=== PATIENT | male | born 1990 | race American Indian/Alaskan Native ===

== ENCOUNTER 2022-07-06 21:43 | Emergency (ER) | payer OTHER, SELFPAY ==
--- NOTE | ~2022-07-06 | CT_ITS ---
EXAMINATION: CT abdomen pelvis w con DATE: 07/07/2022 00:34 INDICATION: Right-sided abdominal pain. TECHNIQUE: Computed tomography (CT) of the abdomen and pelvis was performed with 100 mL Omnipaque 350 intravenous contrast. Automated exposure control and iterative reconstruction technique were employe d. The dose-length product was 752.74 mGy-cm. COMPARISON: None. FINDINGS: The visualized portions of the lung bases are clear without pneumonia or pleural effusion. The heart size is normal. No pericardial effusion. The liver, gallbladder, spleen, pancreas, adrenal glands, and kidneys are normal. There are no dilated loops of bowel. The appendix is normal. There ar e no pathologically enlarged lymph nodes. There is no free intraperitoneal fluid. The bladder is dist ended. There is prominent fat in the left inguinal canal that may be a hernia. There is mild lumbar s pondylosis. There is mild osteoarthritis of the hips. IMPRESSION: 1. No specific etiology for the patient's symptoms. Reviewed, dictated and finalized at location A.
--- NOTE | ~2022-07-06 | XR_ITS ---
EXAM: XR hip RT min 2V DATE: 07/06/2022 22:33 HISTORY: Pain with Movement, NKI, PAIN OCCURED TODAY . COMPARISON: None available. FINDINGS: Normal mineralization. No fracture or dislocation. No lytic or blastic lesion. Mild osteop hytosis and subchondral sclerosis of the hip joint. No erosion or periosteal change. Soft tissues wit hin normal limits. IMPRESSION: No acute osseous finding in the right hip. Mild right hip osteoarthritis. Reviewed, dictated and finalized at location K. IMPRESSION: No acute osseous finding in the right hip. Mild right hip osteoarth ritis.
[2022-07-06 21:50] VITALS: BP 132/74; PULSE 61; RESP 16; TEMP 36.9; O2SAT 99
[2022-07-06 22:59] VITALS: BP 137/84; PULSE 70; RESP 22; O2SAT 99
--- NOTE | 2022-07-06 23:11 | ED.EXTPRO ---
HPI - Extremity Problem General Chief complaint: Extremity Problem,Nontraumatic Stated complaint: right hip pain Time Seen by Provider: 07/06/22 22:34 Source: patient Mode of arrival: EMS Limitations: no limitations History of Present Illness HPI Narrative: This is a 32 year old male that presents to the ER for right lower back pain. Reports he was walking when he felt sudden onset right lower back pain/hip pain. The pain is sharp in nature. Worse with movement. He has not taken anything for pain. Reports some associated right sided abdominal pain. Denies vomiting, dysuria, hematuria, decreased ROM or numbness. Related Data Allergies Allergy/AdvReac Type Severity Reaction Status Date / Time No Known Allergies Allergy Verified 07/06/22 22:24 Review of Systems Review of Systems: CONSTITUTIONAL: Denies fever GASTROINTESTINAL: Reports abdominal pain. Denies nausea, vomiting GENITOURINARY: Denies dysuria or hematuria. SKIN: Denies rash MUSCULOSKELETAL: Reports back pain, joint pain, and myalgia. NEUROLOGIC: Denies numbness, or weakness. All systems reviewed & are unremarkable except as noted in HPI and below PMFSH Past Medical History Medical History (Updated 07/07/22 @ 02:19 by Apple Gudino PA-C) No active medical problems Social History Social History (Updated 07/06/22 @ 23:13 by Apple Gudino PA-C) Smoking status: Never smoker Exam Narrative: GENERAL: Well-appearing, well-nourished, and in no acute distress. HEAD: Normocephalic, atraumatic. EYES: EOMI. CHEST: Clear to auscultation. No respiratory distress. No wheezes rales or rhonchi HEART: Regular rate and rhythm. No murmur heard. Normal peripheral pulses. ABDOMEN: Soft, nondistended, normal active bowel sounds. Mild tenderness palpation throughout right side of the abdomen, without guarding. No CVA tenderness BACK: No midline lumbar spine tenderness EXTREMITIES: Normal range of motion. No edema. Normal DP pulses SKIN: Warm, dry, no rash. NEURO: No focal deficits. Alert and oriented x3. PSYCH: Normal mood and affect Course Vital Signs Vital signs: Vital Signs Temperature 98.4 F 07/06/22 21:50 Pulse Rate 61 07/06/22 21:50 Respiratory Rate 16 07/06/22 21:50 Blood Pressure 132/74 07/06/22 21:50 Pulse Oximetry 99 07/06/22 21:50 Oxygen Delivery Room Air 07/06/22 21:50 Temperature 98.4 F 07/06/22 21:50 Pulse Rate 64 07/07/22 02:15 Respiratory Rate 18 07/07/22 02:15 Blood Pressure 137/84 07/06/22 22:59 Pulse Oximetry 98 07/07/22 02:15 Oxygen Delivery Room Air 07/06/22 21:50 MDM - Extremity (Nontraumatic) MDM Narrative Medical decision making narrative: Patient presents to the emergency department for right sided lower back pain and hip pain. Also reporting some right-sided abdominal pain. He is afebrile and nontoxic-appearing. He is neurologically intact. CBC and metabolic panel without concerning findings. Hip x-ray without acute osseous abnormalities. CT scan of the abdomen and pelvis was obtained. No intra-abdominal inflammatory stranding. Appendix is normal. Visualized bones are normal. Slightly prominent lymph nodes in his right lower quadrant could reflect mesenteric adenitis. UA without evidence of infection. Patient's pain does seem to be more musculoskeletal in nature. Will be prescribed muscle relaxers as needed and instructed to alternate ibuprofen and tylenol. He was given warnings to return to the ER Lab Data Attestation: I reviewed the patient's lab results. Result diagrams: 07/06/22 23:43 07/06/22 23:43 Labs: Lab Results 07/06/22 07/06/22 07/07/22 Range/Units 23:43 23:43 01:41 WBC 6.8 (4.5-10.0) K/mm3 RBC 4.86 (4.6-6.20) M/mm3 Hgb 13.8 L (14.0-18.0) g/dL Hct 42.3 (42.0-52.0) % MCV 87.0 (80-100) fl MCH 28.4 (26-34) pg MCHC 32.6 (32-36) g/dl RDW 13.6 (11.5-14.5) % Plt Count 311 (150-375) k/mm3 M
[2022-07-06] MEDS: diazePAM INJ (*CRX) 10 MG/2 ML SYRINGE 5 MG IV PUSH (23:16)
[2022-07-07 00:01] LABS: Basophils Absolute Auto 0.1 K/mm3 (0.0-0.1); Basophils Percent Auto 0.7 % (0.2-1.2); Eosinophils Percent Auto 0.6 % (0-4.4); Hematocrit 42.3 % (42.0-52.0); Hemoglobin 13.8 g/dL (14.0-18.0); Immature Granulocyte Absolute 0.02 K/mm3 (0.00-0.031); Immature Granulocyte Percent A 0.3 % (0-0.5); Lymphocytes Absolute Auto 2.76 K/mm3 (0.9-3.2); Lymphocytes Percent Auto 40.4 % (18.3-44.2); Mean Corpuscular HGB Conc 32.6 g/dl (32-36); Mean Corpuscular Hemoglobin 28.4 pg (26-34); Monocytes Absolute Auto 0.4 K/mm3 (0.1-0.6); Monocytes Percent Auto 5.6 % (2.6-8.5); Neutrophils Absolute Auto 3.6 K/mm3 (1.3-6.7); Neutrophils Percent Auto 52.4 % (45.5-73.1); Platelet Count Result 311 k/mm3 (150-375); Red Blood Count 4.86 M/mm3 (4.6-6.20); Red Cell Distribution Width 13.6 % (11.5-14.5); White Blood Count 6.8 K/mm3 (4.5-10.0)
[2022-07-07 00:13] LABS: Alanine Aminotransferase 22 U/L (6-50); Albumin Level 4.7 g/dL (3.5-5.1); Alkaline Phosphatase 80 U/L (38-126); Anion Gap 12 mmol/L (8-16); Aspartate Amino Transferase 29 U/L (17-59); Bilirubin,Total 0.6 mg/dL (0.2-1.3); Blood Urea Nitrogen 16 mg/dL (9-20); Calcium 9.2 mg/dL (8.4-10.2); Carbon Dioxide 31 mmol/L (22-30); Chloride 98 mmol/L (98-107); Estimated CRCL calculation 85 ml/min; Estimated Glomerular Filt Rate > 60; Glucose 100 mg/dL (65-110); Sodium 141 mmol/L (137-145)
[2022-07-07 01:00] VITALS: PULSE 63; RESP 17; O2SAT 98
[2022-07-07 02:07] LABS: Appearance Urine Clear (Clear); Bilirubin Urine Negative (Negative); Blood Urine Negative (Negative); Color Urine Yellow (Yellow); Glucose Urine UA Negative (Negative); Ketones Urine Negative (Negative); Leukocyte Esterase Ur Negative LEU/UL (Negative); Nitrate Urine Negative (Negative); Protein Urine Negative (Negative); Urobilinogen Urine 0.2 mg/dL (<2.0)
[2022-07-07 02:12] LABS: Add Urine Microscopic? NO
[2022-07-07 02:15] VITALS: PULSE 64; RESP 18; O2SAT 98
== END 2022-07-07 02:44 | disposition home or self-care (01) ==
PROVIDERS: Physician Assistant; Emergency Provider General Practice
DX: M54.41 Lumbago with sciatica, right side (principal)
CPT/HCPCS: 36415; 73502; 74177; 80053; 81003; 85025; 96365; 96366; 96375; 99284; J0131; J3360; Q9967